=== PATIENT | female | born 1965 | race Caucasian/White ===

== ENCOUNTER → 2017-08-13 13:08 | Outpatient (CLI) | payer OTHER, SELFPAY ==
--- NOTE | 2017-08-13 | DI.MRI.S_ITS ---
PROCEDURE: MR KNEE RT WO CON INDICATIONS: CHRONIC PAIN OF RIGHT KNEE TECHNIQUE: Noncontrast sagittal PD fast spin echo and T2 fast spin echo with fat saturation, sagittal 3-D FLASH with fat saturation; coronal T1 spin echo and PD fast spin echo with fat saturation, and axial PD fast spin echo with fat saturation through the knee. COMPARISON: None. FINDINGS: Image quality: Excellent. Menisci: There is myxoid degeneration however no discrete tear the lateral meniscus. Meniscal tear involving the posterior horn and body extending to the undersurface and free margin. There is partial extrusion of the medial meniscal body with debris and/or synovitis seen in the medial gutter. Cruciate ligaments: The anterior and posterior cruciate ligaments appear intact. Medial structures: The medial collateral ligament appears intact. The posterior oblique ligament, semimembranosus tendon insertions, oblique popliteal ligament, and meniscocapsular junction appear intact. Visualized portions of the pes anserinus tendons appear normal. No abnormal bursal fluid. Lateral structures: The lateral collateral ligament, long and short heads of the biceps femoris tendon appear intact. The popliteus tendon appears normal; the popliteofibular ligament appears intact. The posterosuperior and anteroinferior popliteomeniscal fascicles appear intact. The arcuate and fabellofibular ligaments appear intact, on either side of the lateral inferior geniculate artery. Iliotibial band appears normal. Anterior structures: The quadriceps tendon appears intact. Proximal tendinopathy and partial tear with adjacent superficial left patella subcutaneous edema. Patellar alignment is normal. No femoral trochlear dysplasia or ventral trochlear prominence. No edema in the infrapatellar fat pad. Bones and cartilage: No bone marrow contusions or fractures. Within the medial compartment, diffuse partial thickness loss of the femoral and tibial articular cartilage is noted. No focal defect. Within the lateral compartment, partial-thickness loss of the anterior lateral femoral condyle articular cartilage. The tibial cartilage appears grossly intact. Within the patellofemoral compartment, there is diffuse near full-thickness loss of cartilage overlying the medial patellar facet. There is also diffuse femoral trochlear articular cartilage loss Joint space: No pathologic joint effusion. No Green's cyst seen IMPRESSION: Complex tear involving the medial meniscus posterior horn and body, with partial extrusion, and probable debris versus synovitis in the medial gutter. Proximal patellar tendinopathy and partial tear. This finding is technically age indeterminate and recommend clinical correlation. Adjacent superficial infrapatellar fluid/edema. Tricompartmental joint degeneration as above. Dictated by: Alex Anders M.D. on 08/13/2017 at 13:46 Approved by: Alex Anders M.D. on 08/13/2017 at 13:59
== END ==
PROVIDERS: PCP Internal Medicine; Visit Provider Orthopaedic Surgery
DX: M25.561 Pain in right knee (principal); S83.241A Other tear of medial meniscus, current injury, right knee, initial encounter; M76.51 Patellar tendinitis, right knee; M17.11 Unilateral primary osteoarthritis, right knee
CPT/HCPCS: 73721

== ENCOUNTER → 2019-04-25 12:55 | Outpatient (CLI) | payer OTHER, SELFPAY ==
--- NOTE | 2019-04-25 | DI.RAD.S_ITS ---
PROCEDURE: XR HIP W PEL IF DONE RT 2V INDICATIONS: Other specified arthritis, unspecified site TECHNIQUE: AP pelvis with lateral view(s) of the right hip(s). COMPARISON: None. FINDINGS: Bones: Mild right hip joint osteoarthritic changes are seen with joint space narrowing and subchondral sclerosis. No fractures or dislocations. No evidence of avascular necrosis of femoral head. Pelvic ring appears intact. No suspicious bony lesions. Soft tissues: The visualized bowel gas pattern is normal. No suspicious soft tissue calcifications. IMPRESSION: Mild right hip joint osteoarthritis. No fracture or dislocation. No evidence of avascular necrosis. Dictated by: Tevin Astorga M.D. on 04/25/2019 at 15:39 Approved by: Tevin Astorga M.D. on 04/25/2019 at 15:44
== END ==
PROVIDERS: PCP Nurse Practitioner; Referring Provider Orthopaedic Surgery; Visit Provider Orthopaedic Surgery
DX: M16.11 Unilateral primary osteoarthritis, right hip (principal)
CPT/HCPCS: 73502